=== PATIENT | female | born 1965 | race Caucasian/White ===

== ENCOUNTER 2016-08-22 20:46 | Emergency (ER) | payer MEDICAID ==
[2016-08-22 20:53] VITALS: RESP 16
--- NOTE | 2016-08-22 22:01 | EDPHY ---
H & P Time Seen by Provider: 08/22/16 21:49 HPI/ROS: CHIEF COMPLAINT: Finger laceration HISTORY OF PRESENT ILLNESS: This is a 50-year-old female presenting to the emergency department complaining of laceration to her right pinky. Patient states around 1999 she was washing a drinking glass and it broke while she was washing cutting her right pinky. Patient states her tetanus shot is up-to-date but she will speak with her PCP to verify. Denies any other injuries REVIEW OF SYSTEMS: Constitutional: No fever, no chills. Eyes: No discharge. No blurred vision ENT: No sore throat. Cardiovascular: No chest pain, no palpitations. Respiratory: No cough, no shortness of breath. Gastrointestinal: No abdominal pain, no vomiting. Musculoskeletal: No back pain. Right 5th pinky laceration Skin: No rashes. Neurological: No headache. Smoking Status: Never smoked Physical Exam: General Appearance: Alert and no distress. HEENT: Normocephalic atraumatic Pupils equal and round no injection. Respiratory: Chest is nontender, lungs are clear to auscultation. Cardiac: regular rate and rhythm Musculoskeletal: Neck is supple and nontender. Extremities: Right lateral side of pinky 1 cm superficial laceration, no flexor tendon involvement. full range of motion. Positive CMS intact Skin: No rashes or lesions. Constitutional: Initial Vital Signs Temperature (C) 36.7 C 08/22/16 20:50 Heart Rate 66 08/22/16 20:50 Respiratory Rate 16 08/22/16 20:50 Blood Pressure 111/63 08/22/16 20:50 O2 Sat (%) 97 08/22/16 20:50 O2 Delivery Mode Room Air Allergies/Adverse Reactions: No Known Allergies Allergy (Unverified 08/22/16 20:53) Home Medications: Medication Instructions Recorded NK [No Known Home Meds] 08/22/16 Medical Decision Making Procedures: Procedure: Laceration repair. Verbal consent was obtained from the patient. 1cm superficial laceration on the right 5th pinky. The wound was irrigated. There were no deep structures involved. The wound was repaired Dermabond and Steri-Strips The procedure was performed by myself. A dressing was applied by our EMT. ED Course/Re-evaluation: Discussed ED plan of care: Wound irrigation, wound repair using Dermabond and Steri-Strips placed. Discharge home---> stable, discussed all discharge instructions patient Differential Diagnosis: Other differential diagnosis considered but not limited to laceration involving tendon, avulsion open fracture, and foreign body Departure - Departure Disposition: Home, Routine, Self-Care Clinical Impression: Laceration Condition: Good Instructions: Laceration (ED), Skin Adhesive Care (ED) Additional Instructions: 1. Wound was repaired using derma rocha do not pick at the glue itself. 2. Monitor for any signs of infection, such as: Redness, red streaks, drainage if this should occur return to ER follow up with her primary care provider to get antibiotics 3. Referrals: Rukhsana Jean-Baptiste MD [Primary Care Provider] - As per Instructions
[2016-08-22 22:35] VITALS: BP 80/54; PULSE 50; TEMP 97.5; O2SAT 98
== END 2016-08-22 22:35 | disposition home or self-care (01) ==
PROC: 0HQFXZZ Repair Right Hand Skin, External Approach (ICD-10-PCS; principal; 2016-08-22)
DX: S61.216A Laceration without foreign body of right little finger without damage to nail, initial encounter (principal); W25.XXXA Contact with sharp glass, initial encounter